=== PATIENT | male | born 1960 ===

== ENCOUNTER 2017-10-02 12:14 | Emergency (ER) | payer BC, OTHER ==
--- NOTE | 2017-10-02 12:39 | UC ---
Eye Complaint HPI - HPI Summary HPI Summary: Pt is a 57 y/o M c/o foreign object located in L eye. 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 Notes that he has had similar instances before that he was usually able to remove object on his own. - History of Current Complaint Chief Complaint: UCEye Stated Complaint: WC EYE COMPLAINT Time Seen by Provider: 10/02/17 12:31 Hx Obtained From: Patient Onset/Duration: Sudden Onset, Still Present Timing: Constant Severity Currently: Mild Pain Intensity: 2 Pain Scale Used: 0-10 Numeric Location of Injury: Eye Lid (lower) Character: Foreign Body Sensation Associated Signs And Symptoms: Negative: Fever Related History: Similar Episode, Foreign Body - Allergies/Home Medications Allergies/Adverse Reactions: Allergies Allergy/AdvReac Type Severity Reaction Status Date / Time No Known Allergies Allergy Verified 10/02/17 12:30 Home Medications: Home Medications NK [No Home Medications Reported] 10/02/17 [History Confirmed 10/02/17] PMH/Surg Hx/FS Hx/Imm Hx Other Endocrine History: Neg: DM Cardiovascular History: Hypertension Other Cardiovascular History: Neg: CAD - Surgical History Surgical History: None - Family History Known Family History: Negative: Cardiac Disease, Hypertension, Diabetes - Social History Occupation: Employed Full-time Lives: With Family Alcohol Use: Occasionally Substance Use Type: None Smoking Status (MU): Heavy Every Day Tobacco Smoker Review of Systems Constitutional: Negative - fever Eyes: Other - foreign object All Other Systems Reviewed And Are Negative: Yes Physical Exam - Summary Physical Exam Summary: General: well-appearing, no pain distress Skin: warm, color reflects adequate perfusion, dry Head: normal Eyes: EOMI, ERIC, Foreign body in L eye over iris, 4:30. Less than 1 mm black spec- no scleral injection, no hyphema ENT: normal Neck: supple, nontender Respiratory: CTA, breath sounds present Cardiovascular: RRR Abdomen: soft, nontender Bowel: present Musculoskeletal: normal, strength/ROM intact Neurological: sensory/motor intact, A&O x3 Psychological: affect/mood appropriate Triage Information Reviewed: Yes Vital Signs: Initial Vital Signs Temp 98 F 10/02/17 12:27 Pulse 81 10/02/17 12:27 Resp 16 10/02/17 12:27 BP 141/91 10/02/17 12:27 Pulse Ox 100 07/18/18 12:27 Vital Signs Reviewed: Yes Procedures - Eye Procedure Removal of foreign object Alcaine Drops Administered: Yes - a few drops of tetracaine Eye FB Removal: removal w/ cotton swab Eye Complaint Course/Dx - Course Course Of Treatment: BP noted and advised to follow up with PCP. LEFT EYE FB REMOVED BY MYSELF WITH A Q TIP. F/U OPHTHALMOLOGY IF NOT IMPROVED. - Differential Dx/Diagnosis Differential Diagnosis/HQI/PQRI: Other - Elevated BP without dx of HTN Provider Diagnoses: LEFT EYE FB Discharge - Sign-Out/Discharge Documenting (check all that apply): Patient Departure - Discharge Plan Condition: Stable Disposition: HOME Patient Education Materials: Eye Foreign Body (ED) Referrals: Alex Sapp MD [Primary Care Provider] - Additional Instructions: Your blood pressure was elevated during todays visit; please follow up with your primary care provider within a week for further evaluation. - Billing Disposition and Condition Condition: STABLE Disposition: Home
[2017-10-02] MEDS ORDERED: Tetracaine 0.5% OPTH.SOL 4 ML* 1 DROP BTL ONE (12:42)
[2017-10-02] MEDS ORDERED: Tetracaine 0.5% OPTH.SOL 15ML* BTL ONE (12:42)
[2017-10-02] MEDS ORDERED: Tetracaine 0.5% OPTH.SOL 4 ML* 1 DROP BTL SCH (13:00)
== END 2017-10-02 13:15 | disposition home or self-care (01) ==
LOC: UCEAST 12:14
DX: T15.82XA Foreign body in other and multiple parts of external eye, left eye, initial encounter (principal); X58.XXXA Exposure to other specified factors, initial encounter; Y93.H3 Activity, building and construction; Y92.9 Unspecified place or not applicable; F17.200 Nicotine dependence, unspecified, uncomplicated
CPT/HCPCS: 65220; 99201; A9270-GY; G0463